=== PATIENT | male | born 1980 | race Caucasian/White ===

== ENCOUNTER 2018-10-28 18:08 | Outpatient (CLI) | payer OTHER | END 2018-10-28 18:09 | disposition critical access hospital (66) | LOC: EMS 18:08 | PROVIDERS: ATTEND Surgery | DX: S99.911A Unspecified injury of right ankle, initial encounter (principal); V28.4XXA Motorcycle driver injured in noncollision transport accident in traffic accident, initial encounter | CPT/HCPCS: A0425; A0427 ==

== ENCOUNTER 2018-10-28 18:37 | Emergency (ER) | payer BC, OTHER ==
[2018-10-28] MEDS ORDERED: HYDROmorphone 1 MG/ML CARPUJECT IVP STA ×3 (18:43→20:30)
[2018-10-28] MEDS ORDERED: ceFAZolin 2 GM in SODIUM CHLORIDE 0.9% 100ML 100 ML IV STA (18:43)
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
[2018-10-28] MEDS ORDERED: SODIUM CHLORIDE 0.9% 1,000 ML IV ONE (18:51)
[2018-10-28 19:19] LABS: BASOPHILS # (AUTO) 0.1 10^3/uL (0.0-0.1); BASOPHILS % (AUTO) 0.4 %; EOSINOPHILS # (AUTO) 0.1 10^3/uL (0.0-0.7); EOSINOPHILS % (AUTO) 0.3 %; HGB - HEMOGLOBIN 14.5 g/dL (14.0-18.0); LYMPHOCYTES # (AUTO) 1.2 10^3/uL (1.5-3.5); LYMPHOCYTES % (AUTO) 7.4 %; MEAN CORPUSCULAR HEMOGLOBIN 30.9 pg (27.0-31.0); MEAN CORPUSCULAR HGB CONC 35.2 g/dL (32.0-36.0); MEAN CORPUSCULAR VOLUME 87.7 fL (80.0-94.0); MEAN PLATELET VOLUME 9.8 fL (7.4-11.4); MONOCYTES % (AUTO) 6.2 %; NEUTROPHILS # (AUTO) 13.7 10^3/uL (1.5-6.6); NEUTROPHILS % (AUTO) 85.1 %; PLT - PLATELET COUNT 227 10^3/uL (130-450); RED CELL DISTRIBUTION WIDTH 12.5 % (12.0-15.0); WHITE BLOOD COUNT 16.1 x10^3/uL (4.8-10.8)
--- NOTE | 2018-10-28 19:28 | XRAY Report ---
Reason: ankle deformity, R Procedure Date: 10/28/2018 Accession Number: [id number] / [id number] Procedure: XR - Ankle 3 View RT CPT Code: FULL RESULT: EXAM: RIGHT ANKLE RADIOGRAPHY EXAM DATE: 10/28/2018 07:11 PM. CLINICAL HISTORY: Ankle deformity, R. COMPARISON: FOOT 3 VIEW RT 10/28/2018 6:47 PM. TECHNIQUE: 3 views. FINDINGS: Bones: There is a fracture dislocation of the ankle. There is gross widening between the inferior tibia and fibula syndesmosis. There is a fracture of the medial malleolus with fragment displaced laterally by approximately 3 cm. There is avulsion off of the lateral tibia at the syndesmosis. There is an angulated fracture of the fibula diaphysis with combination. There are fractures of the foot dictated in separate report. Joints: There is dislocation at the ankle joint with talus displaced laterally. Soft Tissues: There is diffuse soft tissue swelling. IMPRESSION: 1. Complex right ankle fracture dislocation. Comminuted angulated fracture of fibula diaphysis. Medial malleolus displaced fracture with avulsion fracture of lateral tibial metaphysis at syndesmosis. Marked widening of the ankle mortise with lateral dislocation of the talus. RADIA
[2018-10-28] MEDS ORDERED: PROPOFOL 200 MG/20 ML VIAL IVP STA (19:29)
[2018-10-28 19:31] LABS: ALBUMIN 4.3 g/dL (3.2-5.5); ALBUMIN/GLOBULIN RATIO 1.6 (1.0-2.2); BILIRUBIN,TOTAL 0.8 mg/dL (0.2-1.0); CALCIUM 9.1 mg/dL (8.5-10.3); CREATININE 0.9 mg/dL (0.6-1.2)
--- NOTE | 2018-10-28 19:34 | XRAY Report ---
Reason: foot deformity, R Procedure Date: 10/28/2018 Accession Number: [id number] / [id number] Procedure: XR - Foot 3 View RT CPT Code: FULL RESULT: EXAM: RIGHT FOOT RADIOGRAPHY EXAM DATE: 10/28/2018 07:11 PM. CLINICAL HISTORY: Foot deformity, R. COMPARISON: None. TECHNIQUE: 3 views. FINDINGS: Bones: There is a comminuted fracture with displacement extending obliquely across the first metatarsal with 1.7 cm of displacement. There is an avulsion fracture off the medial navicular. There are multiple fracture fragments overlying the cuboid. The proximal second through fifth metatarsals are not well seen given overlap. There is a probable fracture of the third metatarsal. Joints: There is gross widening between the first and second cuneiform. There is dislocation of the third and fifth metatarsal phalangeal joint. Soft Tissues: There is soft tissue swelling. There is soft tissue gas laterally. IMPRESSION: 1. Complex fractures of the foot. Fractures including first and third metatarsals, navicular, cuboid. Possible fractures of the proximal second through fifth metatarsals. Given the extensive injury and multiple fractures which could obscure visualization, consider CT to further characterize. 2. Dislocations of the third and fifth MTP joints. Gross widening of the first and second cuneiform. RADIA
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
--- NOTE | 2018-10-28 20:48 | XRAY Report ---
Reason: post reduction Procedure Date: 10/28/2018 Accession Number: [id number] / [id number] Procedure: XR - Ankle 2 View RT CPT Code: FULL RESULT: EXAM: RIGHT ANKLE RADIOGRAPHY EXAM DATE: 10/28/2018 08:37 PM. CLINICAL HISTORY: Post reduction. COMPARISON: ANKLE 3 VIEW RT 10/28/2018 6:43 PM. TECHNIQUE: 2 views. FINDINGS: Bones: Mild improvement in displaced fractures of distal tibia and fibular shaft. Joints: Improvement, still with dislocation at the ankle. IMPRESSION: Mild improvement, still with dislocated ankle in this patient with distal tibial and fibular shaft fractures. RADIA
[2018-10-28 20:51] VITALS: BP 140/81
== END 2018-10-28 20:53 | disposition short-term general hospital (02) ==
LOC: EDBD → EDUNIT# → ED 18:37
DX: S82.51XC Displaced fracture of medial malleolus of right tibia, initial encounter for open fracture type IIIA, IIIB, or IIIC (principal); S93.124A Dislocation of metatarsophalangeal joint of right lesser toe(s), initial encounter; S92.311B Displaced fracture of first metatarsal bone, right foot, initial encounter for open fracture; S92.331B Displaced fracture of third metatarsal bone, right foot, initial encounter for open fracture; S92.251B Displaced fracture of navicular [scaphoid] of right foot, initial encounter for open fracture; S92.211B Displaced fracture of cuboid bone of right foot, initial encounter for open fracture; V29.9XXA Motorcycle rider (driver) (passenger) injured in unspecified traffic accident, initial encounter; Y93.I9 Activity, other involving external motion
CPT/HCPCS: 27762; 36415; 73600; 73610; 73630; 80053; 83690; 85025; 86850; 86900; 86901; 96365; 96366; 96375; 96376; 99285; J1170

== ENCOUNTER 2022-12-08 08:00 | Outpatient (CLI) | payer OTHER ==
--- NOTE | 2022-12-08 13:54 | CT Report ---
PROCEDURE: HEAD WO INDICATIONS: FACIAL ASYMMETRY, HEADACHE TECHNIQUE: Noncontrast 4.5 mm thick angled axial sections acquired from the foramen magnum to the vertex. For r adiation dose reduction, the following was used: automated exposure control, adjustment of mA and/or kV according to patient size. COMPARISON: None. FINDINGS: Image quality: Excellent. CSF spaces: Basal cisterns are patent. No extra-axial fluid collections. Ventricles are normal in size and shape. Brain: No midline shift. No intracranial masses or hemorrhage. Ku-white matter interface is norm al. Skull and face: Calvarium and visualized facial bones are intact, without suspicious lesions. Given the patient's history, scrutiny courses of the facial nerves, including within the visualized paroti d glands. To the limits of this noncontrast head CT, no significant abnormalities can be seen within these regions. Sinuses: Visualized sinuses and mastoids are clear. IMPRESSION: Noncontrast head CT within normal limits for age, without a cause of headache and facial asymmetry. Reviewed by: Pipe Calderon MD on 12/08/2022 12:53 PM AKBEVERLY Approved by: Pipe Calderon MD on 12/08/2022 12:53 PM AKBEVERLY Station ID: [id number]
== END 2022-12-08 08:01 | disposition home or self-care (01) ==
LOC: DI 08:00
PROVIDERS: ATTEND Registered Nurse
DX: Q67.0 Congenital facial asymmetry (principal); R51.9 Headache, unspecified; R53.83 Other fatigue

== ENCOUNTER 2023-06-24 13:11 | Outpatient (CLI) | payer OTHER ==
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
== END 2023-06-24 23:59 | disposition home or self-care (01) ==
LOC: DI.N 13:11
PROVIDERS: ATTEND Physician Assistant Medical
DX: M48.07 Spinal stenosis, lumbosacral region (principal); S39.012A Strain of muscle, fascia and tendon of lower back, initial encounter